=== PATIENT | female | born 1970 | race Caucasian/White ===

== ENCOUNTER 2016-12-25 21:04 | Inpatient (IN) | payer SELFPAY ==
[~2016-12-25] VITALS: Ht 167.6 cm; Wt 68.7 kg
[~2016-12-25 21:04] MED LIST: HYDR-3533 PO; MELO15TA2 PO; METHO500 PO
[2016-12-25] MEDS ORDERED: SODIUM CHLOR 0.9% 1000 ML INJ 1,000 ML IV SCH (21:06)
[2016-12-25] MEDS ORDERED: SODIUM CHLORIDE 0.9% FLUSH 5 ML FLUSH IV FLUSH PRN (21:15)
--- NOTE | 2016-12-25 21:15 | PD ---
HPI Chief Complaint: altered mental status. Time Seen by Provider: 21:06 Travel History International Travel<30 days: No Contact w/Intl Traveler<30days: No History of Present Illness HPI Patient is a 46-year-old female presents to the emergency department for evaluation of altered mental status. According to EMS the patient was recently taken off of her opiate medications her chronic back pain and placed on baclofen. The family reported the patient was having shaking type episodes against the door banging her head against the door. EMS also reported that her left pupil was 6 mm in her right was 3 mm. Initial GCS of 8 on scene. Unclear how much baclofen she's taken today. Patient on arrival is GCS of 8-9: V1- 2M5E2 but does swallow appears to be protecting her airway. All other history is severely limited by the patient's altered mental status. PFSH Past Medical History Bipolar Disorder: Yes Anxiety: Yes Cardiovascular Problems: Yes (MURMUR) COPD: Yes Diminished Hearing: No Immunizations Current: Yes Miscarriage: 1 Past Surgical History Eye Surgery: Yes (1972 - EYE CATARACT) Social History Alcohol Use: Yes (4-6 wine coolers/day) Tobacco Use: Yes (2 packs/day) Substance Use: No Allergies-Medications (Allergen,Severity, Reaction): Coded Allergies: Sulfa (Verified Allergy, Intermediate, rash, 12/25/16) Reported Meds & Prescriptions Reported Meds & Active Scripts Active Active Prescriptions or Reported Medications Unobtainable Review of Systems ROS Limitations: Altered Mental Status Physical Exam Narrative GENERAL: Well-developed well-nourished lethargic. SKIN: Focused skin assessment warm/dry. No bruising no lacerations seen on her person. HEAD: Atraumatic. Normocephalic. No yates signs no raccoons eyes EYES: Pupils equal and round and reactive to light at 3 mm.. No scleral icterus. No injection or drainage. ENT: No nasal bleeding or discharge. Mucous membranes pink and moist. NECK: Trachea midline. No JVD. CARDIOVASCULAR: Regular rate and rhythm. No murmur appreciated. RESPIRATORY: No accessory muscle use. Clear to auscultation. Breath sounds equal bilaterally. GASTROINTESTINAL: Abdomen soft, non-tender, nondistended. Hepatic and splenic margins not palpable. MUSCULOSKELETAL: No obvious deformities. No clubbing. No cyanosis. No edema. NEUROLOGICAL: GCS of 8-9 as above. When painfully stimulated her eyes open wide and she does have some purposeful movements of her arms making her GCS possibly as high as 10. Data Data Last Documented VS Vital Signs Date Time Temp Pulse Resp B/P Pulse Ox O2 Delivery O2 Flow Rate FiO2 12/25/16 23:31 68 23 142/71 99 Room Air 12/25/16 21:29 2 12/25/16 21:24 97.7 Orders Electrocardiogram (12/25/16 21:06) Ammonia (12/25/16 21:06) Complete Blood Count With Diff (12/25/16 21:06) Comprehensive Metabolic Panel (12/25/16 21:06) Creatine Kinase (Cpk) (12/25/16 21:06) Prothrombin Time / Inr (Pt) (12/25/16 21:06) Act Partial Throm Time (Ptt) (12/25/16 21:06) Troponin I (12/25/16 21:06) Thyroid Stimulating Hormone (12/25/16 21:06) Urinalysis - C+S If Indicated (12/25/16 21:06) Chest, Single Ap (12/25/16 21:06) Ct Brain W/O Iv Contrast(Rout) (12/25/16 21:06) Blood Glucose (12/25/16 21:06) Ecg Monitoring (12/25/16 21:06) Iv Access Insert/Monitor (12/25/16 21:06) Oximetry (12/25/16 21:06) Sodium Chloride 0.9% Flush (Ns Flush) (12/25/16 21:15) Sodium Chlor 0.9% 1000 Ml Inj (Ns 1000 M (12/25/16 21:06) Drug Screen, Random Urine (12/25/16 21:06) Alcohol (Ethanol) (12/25/16 21:06) Tylenol (Acetaminophen) (12/25/16 21:06) Salicylates (Aspirin) (12/25/16 21:06) Ct Cerv Spine W/O Contrast (12/25/16 ) Blood Gas Venous (Vbg) (12/25/16 21:56) Restraints Non-Violent JER.Q3H (12/25/16 22:37) Urinary Catheter Management JER.Q8H (12/25/16 22:37) Urine Culture (12/25/16 22:20) Admit Order (Ed Use Only) (12/25/16 ) Labs Laboratory Tests Test 12/25/16 12/25/16 12/25/16 21:14 22:01 22:20 White Blood Count 7.4 TH/MM3 Red Blood Count 4.09 MIL/MM3 Hemoglobin 13.4 GM/DL Hematocrit 38.3 % Mean Corpuscular Volume 93.6 FL Mean Corpuscular Hemoglobin 32.7 PG Mean Corpuscular Hemoglobin 34.9 % Concent Red Cell Distribution Width 14.8 % Platelet Count 126 TH/MM3 Mean Platelet Volume 6.9 FL Neutrophils (%) (Auto) 59.0 % Lymphocytes (%) (Auto) 33.0 % Monocytes (%) (Auto) 5.4 % Eosinophils (%) (Auto) 1.8 % Basophils (%) (Auto) 0.8 % Neutrophils # (Auto) 4.3 TH/MM3 Lymphocytes # (Auto) 2.4 TH/MM3 Monocytes # (Auto) 0.4 TH/MM3 Eosinophils # (Auto) 0.1 TH/MM3 Basophils # (Auto) 0.1 TH/MM3 CBC Comment DIFF FINAL Differential Comment Prothrombin Time 12.8 SEC Prothromb Time International 1.2 RATIO Ratio Activated Partial 26.0 SEC Thromboplast Time Sodium Level 144 MEQ/L Potassium Level 3.2 MEQ/L Chloride Level 113 MEQ/L Carbon Dioxide Level 21.4 MEQ/L Anion Gap 10 MEQ/L Blood Urea Nitrogen 7 MG/DL Creatinine 0.62 MG/DL Estimat Glomerular Filtration 104 ML/MIN Rate Random Glucose 143 MG/DL Calcium Level 8.1 MG/DL Total Bilirubin 1.0 MG/DL Aspartate Amino Transf 28 U/L (AST/SGOT) Alanine Aminotransferase 30 U/L (ALT/SGPT) Alkaline Phosphatase 372 U/L Ammonia 32 MCMOL/L Total Creatine Kinase 29 U/L Troponin I LESS THAN 0.02 NG/ML Total Protein 7.2 GM/DL Albumin 3.6 GM/DL Thyroid Stimulating Hormone 1.640 uIU/ML 3rd Gen Salicylates Level 3.6 MG/DL Acetaminophen Level LESS THAN 2.0 MCG/ML Ethyl Alcohol Level 112 MG/DL Blood Gas Puncture Site RN WITHDRAWAL Blood Gas Patient Temperature 98.6 Venous Blood pH 7.38 Venous Blood Partial Pressure 33 mmHg CO2 Venous Blood Partial Pressure 60 mmHg O2 Venous Blood HCO3 19 mmol/L Venous Blood Oxygen Saturation 83 % Venous Blood Oxygen Content 15.1 Vol % Venous Blood Base Excess -5.1 mmol/L Oxygen Delivery Device ROOM AIR Blood Gas Inspired Oxygen 21 % Urine Color YELLOW Urine Turbidity CLEAR Urine pH 5.5 Urine Specific [place] 1.014 Urine Protein TRACE mg/dL Urine Glucose (UA) NEG mg/dL Urine Ketones NEG mg/dL Urine Occult Blood NEG Urine Nitrite NEG Urine Bilirubin NEG Urine Urobilinogen LESS THAN 2.0 MG/DL Urine Leukocyte Esterase SMALL Urine RBC 1 /hpf Urine WBC 3 /hpf Urine Squamous Epithelial <1 /hpf Cells Urine Bacteria MANY /hpf Urine Hyaline Casts 2 /lpf Urine Mucus FEW /lpf Microscopic Urinalysis Comment CATH-CULTURE IND Urine Opiates Screen NEG Urine Barbiturates Screen NEG Urine Amphetamines Screen NEG Urine Benzodiazepines Screen POS Urine Cocaine Screen NEG Urine Cannabinoids Screen NEG MDM Medical Decision Making Medical Screen Exam Complete: Yes Emergency Medical Condition: Yes Differential Diagnosis Altered mental status, seizure-like activity, Tyrone's paralysis, hemorrhagic brain injury, neck injury, electro-light abnormality, baclofen overdose, opiate washout, alcohol intoxication Narrative Course Patient roomed in emergency department, significant only altered during her stay in the ER. Given EMS history of strong suspicion for a baclofen overdose. The patient's intervals on her EKG were within normal limits. Drug screen was fairly benign, she does have alcohol in her system. CAT scan of her head and neck were negative. Benoit catheter was inserted. She was given normal saline. This point the patient remained significantly altered and given a baclofen possibility and think she would benefit from ICU admission for close monitoring and telemetry monitoring. Patient was discussed with Dr. Patel who agrees to admit the patient. After several hours in the emergency department she was able to tell us her name but she certainly could not tell us where she was how she got here. Critical Care Narrative Aggregate critical care time was 31 minutes. Time to perform other separately billable procedures was not included in the critical care time. My time did not include minutes spent treating any other patients simultaneously or on activities that did not directly contribute to the patient's treatment. The services I provided to this patient were to treat and/or prevent clinically significant deterioration that could result in: , disability, organ failure I provided critical care services requiring my management, as noted below: Chart data review, documentation time, medication orders and management, vital sign assessments/reviewing monitor data, ordering and reviewing lab tests, ordering and interpreting/reviewing x-rays and diagnostic studies, care of the patient and discussion of the patient with the admitting physicians. Diagnosis Primary Impression: Altered mental status Qualified Code: R40.2422 - [place] coma scale total score 9-12, at arrival to emergency department Additional Impression: Seizure-like activity Admitting Information Admitting Physician Requests: Admit Scripts Unable to Obtain Active Prescriptions or Reported Meds Condition: Fausto Donovan MD Dec 25, 2016 21:15
[2016-12-25 21:24] VITALS: BP 131/81; PULSE 52; RESP 16; TEMP 97.7; O2SAT 97
[2016-12-25 21:29] VITALS: O2SAT 100
[2016-12-25 21:30] VITALS: RESP 16; O2SAT 97
--- NOTE | 2016-12-25 21:39 | RADRPT ---
EXAM DATE/TIME: 12/25/2016 21:09 [facility] COMPARISON: No previous studies available for comparison. INDICATIONS : Altered mental status. MEDICAL HISTORY : Chronic obstructive pulmonary disease. SURGICAL HISTORY : None. ENCOUNTER: Initial ACUITY: 1 day PAIN SCORE: Non-responsive. LOCATION: Bilateral chest FINDINGS: A single view of the chest demonstrates the lungs to be symmetrically aerated without evidence of mas s, infiltrate or effusion. The cardiomediastinal contours are unremarkable. Osseous structures are intact. CONCLUSION: No evidence of acute cardiopulmonary disease. Jerrell Anand MD on December 25, 2016 at 21:37 Board Certified Radiologist. This report was verified electronically.
--- NOTE | 2016-12-25 21:40 | RADRPT ---
EXAM DATE/TIME: 12/25/2016 21:30 [facility] COMPARISON: No previous studies available for comparison. INDICATIONS : Altered mental status. Found un-responsive. RADIATION DOSE: 29.70 CTDIvol (mGy) MEDICAL HISTORY : Cardiovascular disease. Chronic obstructive pulmonary disease. SURGICAL HISTORY : None. ENCOUNTER: Initial ACUITY: 1 day PAIN SCALE: Non-responsive LOCATION: cranial TECHNIQUE: Multiple contiguous axial images were obtained of the head. Using automated exposure control and adj ustment of the mA and/or kV according to patient size, radiation dose was kept as low as reasonably a chievable to obtain optimal diagnostic quality images. DICOM format image data is available electro nically for review and comparison. FINDINGS: CEREBRUM: The ventricles are normal for age. No evidence of midline shift, mass lesion, hemorrhage or acute in farction. No extra-axial fluid collections are seen. POSTERIOR FOSSA: The cerebellum and brainstem are intact. The 4th ventricle is midline. The cerebellopontine angle i s unremarkable. EXTRACRANIAL: The visualized portion of the orbits is intact. SKULL: The calvaria is intact. No evidence of skull fracture. CONCLUSION: Negative noncontrast head CT. Jerrell Anand MD on December 25, 2016 at 21:38 Board Certified Radiologist. This report was verified electronically.
[2016-12-25 21:44] LABS: AUTOMATED NEUTROPHIL # 4.3 TH/MM3 (1.8-7.7); BASOPHIL # 0.1 TH/MM3 (0-0.2); BASOPHIL % 0.8 % (0.0-2.0); EOSINOPHIL # 0.1 TH/MM3 (0-0.4); EOSINOPHIL % 1.8 % (0.0-4.0); HEMATOCRIT 38.3 % (35.0-46.0); HEMO FLAGS DIFF FINAL; LYMPHOCYTE # 2.4 TH/MM3 (1.0-4.8); MEAN CELL VOLUME 93.6 FL (80.0-100.0); MEAN CORPUSCULAR HEMOGLOBIN 32.7 PG (27.0-34.0); MEAN CORPUSCULAR HGB CONC 34.9 % (32.0-36.0); MONO % 5.4 % (0.0-8.0); PLATELET COUNT 126 TH/MM3 (150-450); RED BLOOD COUNT 4.09 MIL/MM3 (4.00-5.30); RED CELL DISTRIBUTION WIDTH 14.8 % (11.6-17.2); WHITE BLOOD COUNT 7.4 TH/MM3 (4.0-11.0)
[2016-12-25 21:55] LABS: INTERNATIONAL NORMALIZED RATIO 1.2 RATIO; PROTHROMBIN TIME - PATIENT 12.8 SEC (9.8-11.6)
--- NOTE | 2016-12-25 22:13 | RADRPT ---
EXAM DATE/TIME: 12/25/2016 21:30 [facility] COMPARISON: No previous studies available for comparison. INDICATIONS : Possible fall, found un-responsive. RADIATION DOSE: 15.52 CTDIvol (mGy) MEDICAL HISTORY : Chronic obstructive pulmonary disease. Cardiovascular disease SURGICAL HISTORY : None. ENCOUNTER: Initial ACUITY: 1 day PAIN SCALE: Non-responsive LOCATION: neck TECHNIQUE: Volumetric scanning of the cervical spine was performed. Multiplanar reconstructions in the sagittal, coronal and oblique axial planes were performed. Using automated exposure control and adjustment o f the mA and/or kV according to patient size, radiation dose was kept as low as reasonably achievable to obtain optimal diagnostic quality images. DICOM format image data is available electronically f or review and comparison. FINDINGS: VERTEBRAE: Normal vertebral body height. ALIGNMENT: No evidence of subluxation. C2-C3: The bony spinal canal is normal in size. No evidence of disc bulge or herniation. The neural forami na are bilaterally patent. C3-C4: The bony spinal canal is normal in size. No evidence of disc bulge or herniation. The neural forami na are bilaterally patent. C4-C5: Mild disc space narrowing. There is a left paracentral/foraminal disc protrusion, probably impinging on the exiting left C5 nerve root. C5-C6: Slight disc space narrowing. Small, broad a mostly left paracentral/foraminal disc protrusion. There is mild left foraminal stenosis. C6-C7: The bony spinal canal is normal in size. No evidence of disc bulge or herniation. The neural forami na are bilaterally patent. C7-T1: The bony spinal canal is normal in size. No evidence of disc bulge or herniation. The neural forami na are bilaterally patent. CONCLUSION: 1. No fracture or subluxation of the cervical spine. 2. Age-indeterminate left foraminal disc protrusion at C4/C5, likely impinging on the exiting left C5 nerve root. 3. Mild degenerative disease at C5/C6 with mild left foraminal stenosis. Jerrell Anand MD on December 25, 2016 at 22:09 Board Certified Radiologist. This report was verified electronically.
[2016-12-25 22:15] LABS: BLOOD GAS VENOUS BASE EXCESS -5.1 mmol/L (-2-2); BLOOD GAS VENOUS HCO3 19 mmol/L (22-26); BLOOD GAS VENOUS O2 CONTENT 15.1 Vol % (9.0-17.0); BLOOD GAS VENOUS O2 HGB SAT 83 % (70-76); BLOOD GAS VENOUS PCO2 33 mmHg (44-48); BLOOD GAS VENOUS PO2 60 mmHg (35-40); BLOOD GAS VENOUS pH 7.38 (7.360-7.400); TEMP CORR TO 98.6
[2016-12-25 22:16] LABS: CRITICAL VALUE NO; FIO2 21 %; OXYGEN DEVICE ROOM AIR
[2016-12-25 22:27] LABS: ANION GAP 10 MEQ/L (5-15); AST (GOT) 28 U/L (15-37); BICARBONATE 21.4 MEQ/L (21.0-32.0); BLOOD UREA NITROGEN 7 MG/DL (7-18); CHLORIDE 113 MEQ/L (98-107); GLOMERULAR FILTRATION RATE 104 ML/MIN (>89); POTASSIUM 3.2 MEQ/L (3.5-5.1); SODIUM (NA) 144 MEQ/L (136-145)
[2016-12-25 22:28] LABS: ALT (GPT) 30 U/L (10-53)
[2016-12-25 22:38] LABS: BACTERIA, URINE MANY /hpf; BLOOD, URINE NEG (NEG); GLUCOSE,URINE NEG (NEG); HYALINE CAST, URINE 2 /lpf (RARE); KETONE, URINE NEG (NEG); MUCUS URINE FEW /lpf (OCC); NITRITE,URINE NEG (NEG); PH, URINE 5.5 (5.0-8.5); SQUAMOUS EPITHELIAL CELL URINE <1 /hpf (0-5); URINE COLOR YELLOW (YELLW/STRAW)
[2016-12-25 22:38] LABS: ALKALINE PHOSPHATASE 372 U/L (45-117)
[2016-12-25 22:39] LABS: COMMENT (UR) CATH-CULTURE IND; CULTURE IF INDICATED CATH CULTURE IND
[2016-12-25 22:44] LABS: ACETAMINOPHEN LESS THAN 2.0 MCG/ML (10.0-30.0); CREATINE KINASE 29 U/L (26-192)
[2016-12-25 22:56] LABS: AMPHETAMINE, URINE NEG (NEG); BARBITURATES, URINE NEG (NEG); COCAINE, URINE NEG (NEG)
[2016-12-25 23:31] VITALS: BP 142/71; PULSE 68; RESP 23; O2SAT 99
[2016-12-26] VITALS (15 sets, daily range): BP systolic 117–152; BP diastolic 65–90; PULSE 41–67; RESP 16–20; TEMP 97.5–99.5; O2SAT 98–100
[2016-12-26] MEDS ORDERED: SODIUM PHOSPHATE INJ 30 MMOL in SODIUM CHLOR 0.9% 250 ML INJ 240 ML IV PRN (01:15)
[2016-12-26] MEDS ORDERED: POTASSIUM PHOSPHATE MONOBASIC 500 MG TAB PO PRN (01:15)
[2016-12-26] MEDS ORDERED: DEXTROSE 50% IN WATER 50 ML VIAL(D50) IV PUSH PRN (01:15)
[2016-12-26] MEDS ORDERED: CHLORHEXIDINE GLUCONATE 2 % 1 PACK (2 CLOTHS) TOP PRN (01:15)
[2016-12-26] MEDS ORDERED: MAGNESIUM SULFATE INJ 4 GM in SODIUM CHLORIDE 0.9% INJ 92 ML IV PRN (01:15)
[2016-12-26] MEDS ORDERED: MAGNESIUM OXIDE 400 MG TAB PO PRN (01:15)
[2016-12-26] MEDS ORDERED: MISCELLANEOUS NURSING INFORMATION XX SCH (01:15)
[2016-12-26] MEDS ORDERED: RESP: ALBUTEROL 2.5 MG/IPRATROPIUM 0.5 MG NEB (PRN) INH (01:15)
[2016-12-26] MEDS ORDERED: ONDANSETRON HCL 4 MG/2 ML VIAL IV PRN (01:15)
[2016-12-26] MEDS ORDERED: POTASSIUM CHLOR 20 MEQ PREMIX 100 ML IV PRN ×2 (01:15)
[2016-12-26] MEDS ORDERED: POTASSIUM CHLOR 40 MEQ PREMIX 100 ML IV PRN ×2 (01:15)
[2016-12-26] MEDS ORDERED: MAGNESIUM SULFATE INJ 2 GM in SODIUM CHLORIDE 0.9% INJ 96 ML IV PRN (01:15)
[2016-12-26] MEDS ORDERED: ENOXAPARIN SODIUM 40 MG/0.4 ML SYRINGE SQ SCH (01:15)
[2016-12-26] MEDS ORDERED: POTASSIUM PHOSPHATE INJ 30 MMOL in SODIUM CHLOR 0.9% 250 ML INJ 250 ML IV PRN (01:15)
[2016-12-26] MEDS ORDERED: POTASSIUM PHOSPHATE MONOBASIC 500 MG TAB PO/TUBE PRN (01:15)
--- NOTE | 2016-12-26 01:31 | HHI.HP ---
HPI Service Critical Care Medicine Primary Care Physician Unknown Admission Diagnosis Altered mental status, Probable Baclofen OD. Diagnosis: Chief Complaint: altered mental status Travel History International Travel<30 Days: No Contact w/Intl Traveler <30 Da: No Traveled to Known Affected Are: No History of Present Illness This is a 46yF with history of bipolar disorder who presents to the ED with acute altered mental status. according to EMS, patient was taken off her opiate medications for chronic back pain and placed on baclofen. Her family reported that she was having "shaking type episodes". EMS initially reported she had unequal pupils with an initial GCS 8. In the ED, her pupils were equal and her GCS is improving although she remains severely altered. the remainder of the history is unobtainable secondary to her clinical condition. she is admitted for presumed baclofen overdose. Review of Systems ROS Limitations: Clinical Condition, Intoxication, Altered Mental Status Past Family Social History Allergies: Coded Allergies: Sulfa (Verified Allergy, Intermediate, rash, 12/25/16) Past Medical History Bipolar Disorder Anxiety Disorder COPD Past Surgical History 1972 EYE CATARACT Reported Medications unobtainable secondary to the clinical condition of the patient. Active Ordered Medications See MAR Family History unobtainable secondary to the clinical condition of the patient. Social History unobtainable secondary to the clinical condition of the patient. Physical Exam Vital Signs Vital Signs Date Time Temp Pulse Resp B/P Pulse Ox O2 Delivery O2 Flow Rate FiO2 12/25/16 23:31 68 23 142/71 99 Room Air 12/25/16 21:30 16 97 Room Air 12/25/16 21:29 100 Nasal Cannula 2 12/25/16 21:24 97.7 52 16 131/81 97 Physical Exam GENERAL: Middle-aged female, lying in bed, severely altered, very agitated HEENT: Normocephalic. Atraumatic. Pupils equal, round, reactive, conjugate. Mucous membranes are moist NECK: Trachea is midline. There is no JVD. CHEST: Equal chest rise. Clear to auscultation CARDIOVASCULAR: Normal rate, regular rhythm. Sinus by telemetry ABDOMEN: Soft, nontender, nondistended. No guarding. MUSCULOSKELETAL: Pulses 2+. No peripheral edema. NEUROLOGICAL: RASS +1. does not follow commands. withdraws to deep painful stimuli no focal deficits. Laboratory Laboratory Tests Test 12/25/16 12/25/16 12/25/16 21:14 22:01 22:20 White Blood Count 7.4 Red Blood Count 4.09 Hemoglobin 13.4 Hematocrit 38.3 Mean Corpuscular Volume 93.6 Mean Corpuscular Hemoglobin 32.7 Mean Corpuscular Hemoglobin 34.9 Concent Red Cell Distribution Width 14.8 Platelet Count 126 Mean Platelet Volume 6.9 Neutrophils (%) (Auto) 59.0 Lymphocytes (%) (Auto) 33.0 Monocytes (%) (Auto) 5.4 Eosinophils (%) (Auto) 1.8 Basophils (%) (Auto) 0.8 Neutrophils # (Auto) 4.3 Lymphocytes # (Auto) 2.4 Monocytes # (Auto) 0.4 Eosinophils # (Auto) 0.1 Basophils # (Auto) 0.1 CBC Comment DIFF FINAL Differential Comment Prothrombin Time 12.8 Prothromb Time International 1.2 Ratio Activated Partial 26.0 Thromboplast Time Sodium Level 144 Potassium Level 3.2 Chloride Level 113 Carbon Dioxide Level 21.4 Anion Gap 10 Blood Urea Nitrogen 7 Creatinine 0.62 Estimat Glomerular Filtration 104 Rate Random Glucose 143 Calcium Level 8.1 Total Bilirubin 1.0 Aspartate Amino Transf 28 (AST/SGOT) Alanine Aminotransferase 30 (ALT/SGPT) Alkaline Phosphatase 372 Ammonia 32 Total Creatine Kinase 29 Troponin I LESS THAN 0.02 Total Protein 7.2 Albumin 3.6 Thyroid Stimulating Hormone 1.640 3rd Gen Salicylates Level 3.6 Acetaminophen Level LESS THAN 2.0 Ethyl Alcohol Level 112 Blood Gas Puncture Site RN WITHDRAWAL Blood Gas Patient Temperature 98.6 Venous Blood pH 7.38 Venous Blood Partial Pressure 33 CO2 Venous Blood Partial Pressure 60 O2 Venous Blood HCO3 19 Venous Blood Oxygen Saturation 83 Venous Blood Oxygen Content 15.1 Venous Blood Base Excess -5.1 Oxygen Delivery Device ROOM AIR Blood Gas Inspired Oxygen 21 Urine Color YELLOW Urine Turbidity CLEAR Urine pH 5.5 Urine Specific [place] 1.014 Urine Protein TRACE Urine Glucose (UA) NEG Urine Ketones NEG Urine Occult Blood NEG Urine Nitrite NEG Urine Bilirubin NEG Urine Urobilinogen LESS THAN 2.0 Urine Leukocyte Esterase SMALL Urine RBC 1 Urine WBC 3 Urine Squamous Epithelial <1 Cells Urine Bacteria MANY Urine Hyaline Casts 2 Urine Mucus FEW Microscopic Urinalysis Comment CATH-CULTURE IND Urine Opiates Screen NEG Urine Barbiturates Screen NEG Urine Amphetamines Screen NEG Urine Benzodiazepines Screen POS Urine Cocaine Screen NEG Urine Cannabinoids Screen NEG Date/Time Procedure Status Source Growth 12/25/16 22:20 Urine Culture Received Urine Catheterized Urine Pending Result Diagram: 12/25/16211312/25/162113 Imaging Last Impressions Head CT 12/25/162105 Signed Impressions: Service Date/Time: Sunday, December 25, 2016 21:30 - CONCLUSION: Negative noncontrast head CT. Jerrell Anand MD Chest X-Ray 12/25/162105 Signed Impressions: Service Date/Time: Sunday, December 25, 2016 21:09 - CONCLUSION: No evidence of acute cardiopulmonary disease. Jerrell Anand MD Cervical Spine CT 12/25/16 0000 Signed Impressions: Service Date/Time: Sunday, December 25, 2016 21:30 - CONCLUSION: 1. No fracture or subluxation of the cervical spine. 2. Age-indeterminate left foraminal disc protrusion at C4/C5, likely impinging on the exiting left C5 nerve root. 3. Mild degenerative disease at C5/C6 with mild left foraminal stenosis. Jerrell Anand MD Assessment and Plan Assessment and Plan Assessment: 46yF with presumed baclofen overdose and acute toxic encephalopathy. critically ill at this time with severe encephalopathy. admit to ICU with frequent neuro checks. monitor for dysrhythmias. ivf. Plan: Toxic Encephalopathy Presumed Baclofen overdose -- frequent neuro checks -- may require ativan for her agitation. -- will hold off on intubation at this time as she is protecting her airway -- ivf -- telemetry -- npo with nursing bedside swallow evaluation. advance diet only after mental status improves. Urinary Tract Infection -- rocephin 1gm iv x 3 days. f/u cultures. SCDs Lovenox no indication for gi prophylaxis at this time. This patient remains critically ill with one or more organ systems which are or may become a threat to life. I have spent in excess of 41 minutes discontinuously in the care and management of this patient. This time is exclusive of procedures, and includes, but is not limited to, evaluation of the patient, review of the medical record, discussions with family, consultants, nursing staff, or respiratory therapy, and documentation in the medical record. Eren Nguyen MD Dec 26, 2016 01:31
[2016-12-26] MEDS: SODIUM CHLOR 0.9% 1000 ML INJ 1,000 ML IV SCH ×2 (01:53→12:31)
[2016-12-26] MEDS: cefTRIAXone INJ 1,000 MG in SODIUM CHLORIDE 0.9% INJ 100 ML IV SCH (02:20)
[2016-12-26] MEDS: CHLORHEXIDINE GLUCONATE 2 % 1 PACK (2 CLOTHS) TOP SCH (04:00)
[2016-12-26] MEDS: INSULIN NovoLIN REGULAR SUPPLEMENTAL SCALE SQ SCH ×3 (06:00→17:29)
[2016-12-26 07:18] LABS: STAT NO
--- NOTE | 2016-12-26 07:40 | EKG ---
Date Performed: 12/25/2016 Time Performed: 21:50:46 PTAGE: 46 years EKG: Sinus rhythm RSR prime and leads V1 and V2. Borderline nonspecific ST T-wave changes NO PREVIOUS TRACING DOCTOR: Bonilla Tejeda Interpretating Date/Time 12/26/2016 07:38:56
[2016-12-26] MEDS: DOCUSATE SODIUM 50 MG/SENNA 8.6 MG TAB PO SCH ×2 (09:00→21:00)
[2016-12-26] MEDS: ENOXAPARIN SODIUM 40 MG/0.4 ML SYRINGE SQ SCH (09:46)
--- NOTE | 2016-12-26 14:15 | PD.PSY.CON ---
Provisional Diagnosis Admission Date Dec 25, 2016 at 23:58 Cedar I. Bipolar disorder, depressed episode, alcohol use disorder, Cedar II. Deferred Cedar III. Chronic back pain Cedar IV. alcohol use disorder Cedar V. 50 History of Present Illness Service Psychiatry Consult Requested By Reason for Consult Suicidal attempts. Primary Care Physician Unknown HPI This is a 46-year-old woman, domiciled with her boyfriend Marybeth Casiano, employed in a factory, no kids, on [employer] process, with past psychiatric history of bipolar disorder, 3 previous psychiatric hospitalizations, the last hospitalization was in 1999, no established outpatient care, no psychotropics, multiple suicidal attempts, history of self cutting behavior, alcohol use disorder, medical history of chronic back pain, disorder who presents to the ED with acute altered mental status. according to EMS, patient was taken off her opiate medications for chronic back pain and placed on baclofen. Her family reported that she was having "shaking type episodes". EMS initially reported she had unequal pupils with an initial GCS 8. In the ED, her pupils were equal and her GCS is improving although she remains severely altered. the remainder of the history is unobtainable secondary to her clinical condition. she is admitted for presumed baclofen overdose. Consulted to psychiatry due to suspicion of suicidal attempt. On psychiatric evaluation today the patient is calm, cooperative, she explains that at the moment of the overdose she was drunk. She and says that she drinks heavily, about 5-6 drinks of vodka per day "probably more", and yesterday she was missing her medication for back pain and decided to take baclofen trying to substitute them. Patient clarifies that she did not have a suicidal attempt, but at the same time she has been depressed in the last days and she has not been taking occasions for her previous she diagnosed bipolar disorder. At the moment of this evaluation the patient denies suicidal or homicidal ideation, denies visual and auditory hallucinations , patient is logical, coherent and relevant. Oriented 3, no attention deficit , no fluctuation of consciousness. Collateral information from her boyfriend was obtained, was present during part of the evaluation, he was interviewed individually. He says that patient has been most probably depressed for the last months. He says that the mood has been worse after an accident that has worsened her back pain. He does not think that she overdosed with suicidal intention, but he also clarifies that the patient most probably has been depressed, but he says that his depression is related with alcoholism, undertreated back pain and noncompliant with psychotropics. 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 Review of Systems Constitutional: DENIES: Diaphoretic episodes, Fatigue, Fever, Weight gain, Weight loss, Chills, Dizziness, Change in appetite, Night Sweats Endocrine: DENIES: Abnorml menstrual pattern, Heat/cold intolerance, Polydipsia , Polyuria, Polyphagia Eyes: DENIES: Blurred vision, Diplopia, Eye inflammation, Eye pain, Vision loss , Photosensitivity, Double Vision Ears, nose, mouth, throat: DENIES: Tinnitus, Hearing loss, Vertigo, Nasal discharge, Oral lesions, Throat pain, Hoarseness, Ear Pain, Running Nose, Epistaxis, Sinus Pain, Toothache, Odynophagia Respiratory: DENIES: Apneas, Cough, Snoring, Wheezing, Hemoptysis, Sputum production, Shortness of breath Cardiovascular: DENIES: Chest pain, Palpitations, Syncope, Dyspnea on Exertion , PND, Lower Extremity Edema, Orthopnea, Claudication Gastrointestinal: DENIES: Abdominal pain, Black stools, Bloody stools, Constipation, Diarrhea, Nausea, Vomiting, Difficulty Swallowing, Anorexia Musculoskeletal: DENIES: Joint pain, Muscle aches, Stiffness, Joint Swelling, Back pain, Neck pain Integumentary: DENIES: Abnormal pigmentation, Pruritus, Rash, Nail changes, Breast masses, Breast skin changes, Nipple discharge Hematologic/lymphatic: DENIES: Bruising, Lymphadenopathy Immunologic/allergic: DENIES: Eczema, Urticaria Neurologic: DENIES: Abnormal gait, Headache, Localized weakness, Paresthesias, Seizures, Speech Problems, Tremor, Poor Balance Psychiatric: COMPLAINS OF: Mood changes, Depression Past Family Social History Coded Allergies: Sulfa (Sulfonamide Antibiotics) (Unverified Allergy, Intermediate, rash, ) Unable to Obtain Active Prescriptions or Reported Meds Current Medications Medications (Trade) Dose Ordered Sig/Ilana Route Start Time Stop Time Status Last Admin (NS Flush) 2 ml UNSCH PRN IV FLUSH 12/25/16 21:15 Magnesium Oxide 800 mg 800 mg UNSCH PRN PO 12/26/16 01:15 Magnesium Sulfate 4 gm/Sodium Chloride 100 ml @ 50 mls/hr UNSCH PRN IV 12/26/16 01:15 Magnesium Sulfate 2 gm/Sodium Chloride 100 ml @ 50 mls/hr UNSCH PRN IV 12/26/16 01:15 Potassium Chloride 100 ml @ 50 mls/hr Q2H PRN IV 12/26/16 01:15 Potassium Chloride 100 ml @ 50 mls/hr Q2H PRN IV 12/26/16 01:15 Potassium Chloride 100 ml @ 50 mls/hr Q2H PRN IV 12/26/16 01:15 (KCl 40 Meq Premix Inj) 100 ml @ 25 mls/hr UNSCH PRN IV 12/26/16 01:15 (K-Phos) 2,000 mg Q4H PRN PO 12/26/16 01:15 Potassium Phosphate 2000 mg 2,000 mg UNSCH PRN PO/TUBE 12/26/16 01:15 Potassium Phosphate 30 mmol/ Sodium Chloride 260 ml @ 42 mls/hr UNSCH PRN IV 12/26/16 01:15 (Sodium Phosphate Inj/NS 250 ml Inj) 250 ml @ 42 mls/hr UNSCH PRN IV 12/26/16 01:15 (D50w (Vial) Inj) 25 ml UNSCH PRN IV PUSH 12/26/16 01:15 Insulin Human Regular 1 1 Q6HR SQ 12/26/16 06:00 (NS 1000 ml Inj) 1,000 ml @ 50 mls/hr Q20H IV 12/26/16 01:14 12/26/16 12:31 (Tylenol) 650 mg Q6H PRN PO 12/26/16 01:15 (Zofran Inj) 4 mg Q6H PRN IV 12/26/16 01:15 Miscellaneous Information 1 Q361D XX 12/26/16 01:15 12/26/16 01:15 (Chlorhexidine 2% Cloth) 3 pack Taper DAILY@04 TOP 12/26/16 04:00 12/22/17 03:59 12/26/16 04:00 (Chlorhexidine 2% Cloth) 3 pack UNSCH PRN TOP 12/26/16 01:15 Senna/Docusate Sodium 1 tab 1 tab BID PO 12/26/16 09:00 (Rocephin Inj/NS Inj) 100 ml @ 200 mls/hr Q24H IV 12/26/16 02:00 12/29/16 01:59 12/26/16 02:20 (Lovenox Inj) 40 mg Q24H SQ 12/26/16 09:00 12/26/16 09:46 Family History She denies family psychiatric history Social History Patient was born and raised in [facility], she has been living in [place] since 1992, she lives with her boyfriend in [place], she has no kids, she is employed in a factory, her highest level of education is high school with a medical lab specialist diploma. Patient's Strengths (min. 2) Insight of her alcohol use Physical Exam No EPS, Tremor, withdrawal, no gait disturbance. Vital Signs Vital Signs Date Time Temp Pulse Resp B/P Pulse Ox O2 Delivery O2 Flow Rate FiO2 12/26/16 12:00 62 12/26/16 11:05 97.5 20 142/67 100 12/26/16 02:49 Room Air 12/25/16 21:29 2 Lab Results Laboratory Tests Test 12/25/16 12/25/16 12/25/16 21:14 22:01 22:20 White Blood Count 7.4 Red Blood Count 4.09 Hemoglobin 13.4 Hematocrit 38.3 Mean Corpuscular Volume 93.6 Mean Corpuscular Hemoglobin 32.7 Mean Corpuscular Hemoglobin 34.9 Concent Red Cell Distribution Width 14.8 Platelet Count 126 Mean Platelet Volume 6.9 Neutrophils (%) (Auto) 59.0 Lymphocytes (%) (Auto) 33.0 Monocytes (%) (Auto) 5.4 Eosinophils (%) (Auto) 1.8 Basophils (%) (Auto) 0.8 Neutrophils # (Auto) 4.3 Lymphocytes # (Auto) 2.4 Monocytes # (Auto) 0.4 Eosinophils # (Auto) 0.1 Basophils # (Auto) 0.1 CBC Comment DIFF FINAL Differential Comment Prothrombin Time 12.8 Prothromb Time International 1.2 Ratio Activated Partial 26.0 Thromboplast Time Sodium Level 144 Potassium Level 3.2 Chloride Level 113 Carbon Dioxide Level 21.4 Anion Gap 10 Blood Urea Nitrogen 7 Creatinine 0.62 Estimat Glomerular Filtration 104 Rate Random Glucose 143 Calcium Level 8.1 Total Bilirubin 1.0 Aspartate Amino Transf 28 (AST/SGOT) Alanine Aminotransferase 30 (ALT/SGPT) Alkaline Phosphatase 372 Ammonia 32 Total Creatine Kinase 29 Troponin I LESS THAN 0.02 Total Protein 7.2 Albumin 3.6 Thyroid Stimulating Hormone 1.640 3rd Gen Salicylates Level 3.6 Acetaminophen Level LESS THAN 2.0 Ethyl Alcohol Level 112 Blood Gas Puncture Site RN WITHDRAWAL Blood Gas Patient Temperature 98.6 Venous Blood pH 7.38 Venous Blood Partial Pressure 33 CO2 Venous Blood Partial Pressure 60 O2 Venous Blood HCO3 19 Venous Blood Oxygen Saturation 83 Venous Blood Oxygen Content 15.1 Venous Blood Base Excess -5.1 Oxygen Delivery Device ROOM AIR Blood Gas Inspired Oxygen 21 Urine Color YELLOW Urine Turbidity CLEAR Urine pH 5.5 Urine Specific [place] 1.014 Urine Protein TRACE Urine Glucose (UA) NEG Urine Ketones NEG Urine Occult Blood NEG Urine Nitrite NEG Urine Bilirubin NEG Urine Urobilinogen LESS THAN 2.0 Urine Leukocyte Esterase SMALL Urine RBC 1 Urine WBC 3 Urine Squamous Epithelial <1 Cells Urine Bacteria MANY Urine Hyaline Casts 2 Urine Mucus FEW Microscopic Urinalysis Comment CATH-CULTURE IND Urine Opiates Screen NEG Urine Barbiturates Screen NEG Urine Amphetamines Screen NEG Urine Benzodiazepines Screen POS Urine Cocaine Screen NEG Urine Cannabinoids Screen NEG Date/Time Procedure Status Source Growth 12/25/16 22:20 Urine Culture Received Urine Catheterized Urine Pending Result Diagram: 12/25/16211312/25/162113 Mental Status Examination Appearance woman, disheveled, fair hygiene, calm and cooperative Speech: Unremarkable Orientation: x3 Memory: Unremarkable Thought Process: Logical Thought Content: Unremarkable Language fluent and spontaneous Fund of Knowledge adequate for level of education Hallucination Type: None Attention and Concentration: Good Suicidal Ideation: Yes Previous Suicide Attempts: No Homicidal Ideation: No Previous Homicide Attempts: No Insight: Fair, Poor Judgment: Impulsive Affect: Sad Mood: Sad Motor Activity: Normal gait Assessment & Plan Problem List: (1) Bipolar depression Assessment & Plan: On psychiatric evaluation today patient is calm, cooperative and pleasant. Logical, coherent and relevant. Patient reports ongoing symptomatology of depression for the last months in the context of increased alcohol use, undertreated pain and noncompliance with psychotropics. Patient denies suicidal and homicidal ideation, she denies visual and auditory hallucinations. He denies that recent overdose was with suicidal intentions, but with the intention to treat her pain. Her boyfriend uses a collateral information corroborates with the idea that the patient did not try to commit suicide, but was trying to treat her back pain. Patient expressed understanding of the importance of engaging in psychiatric care for treatment of depression and restart in her psychotropics. She does not meet criteria for involuntary psychiatric admission at this moment, but she was offered to be admitted in psychiatric entirely to restart antidepressants and mood stabilizers once medically clear. We will start Zoloft 25 mg daily for depression. Extensive support, motivation and psychoeducation provided, with follow-up. ICD Code: F31.30 Assessment & Plan Estimated LOS: days Sanjiv Camp MD Dec 26, 2016 14:15
[2016-12-26 15:02] LABS: ALT (GPT) 27 U/L (10-53); ANION GAP 8 MEQ/L (5-15); AST (GOT) 30 U/L (15-37); BICARBONATE 24.6 MEQ/L (21.0-32.0); BLOOD UREA NITROGEN 9 MG/DL (7-18); CHLORIDE 115 MEQ/L (98-107); GLOMERULAR FILTRATION RATE 98 ML/MIN (>89); POTASSIUM 3.6 MEQ/L (3.5-5.1); SODIUM (NA) 148 MEQ/L (136-145)
[2016-12-26 15:06] LABS: ALKALINE PHOSPHATASE 346 U/L (45-117); TOTAL BILIRUBIN ADULT 1.5 MG/DL (0.2-1.0)
[2016-12-26] MEDS ORDERED: PILL SPLITTER OTHER PRN (15:15)
[2016-12-26] MEDS: SERTRALINE HCL 50 MG TAB PO SCH (16:00)
[2016-12-26] MEDS: ACETAMINOPHEN 325 MG TAB PO PRN ×2 (17:19→21:28)
[2016-12-26] MEDS ORDERED: LORazepam 2 MG/ML VIAL IV PUSH PRN ×4 (17:45)
[2016-12-26] MEDS ORDERED: FLUMAZENIL 0.5 MG/5 ML VIAL IV PUSH PRN (17:45)
[2016-12-26] MEDS ORDERED: LORazepam 2 MG TAB PO PRN (17:45)
[2016-12-26] MEDS ORDERED: SODIUM CHLORIDE 0.9% FLUSH 10 ML FLUSH IV FLUSH PRN (17:45)
[2016-12-26] MEDS: SODIUM CHLORIDE 0.9% FLUSH 10 ML FLUSH IV FLUSH SCH (21:00)
[2016-12-26] MEDS: LORazepam 1 MG TAB PO PRN (21:37)
[2016-12-27] VITALS (9 sets, daily range): BP systolic 139–169; BP diastolic 63–77; PULSE 52–63; RESP 16–21; TEMP 97.6–98.3; O2SAT 95–99
[2016-12-27] MEDS: cefTRIAXone INJ 1,000 MG in SODIUM CHLORIDE 0.9% INJ 100 ML IV SCH (01:47)
[2016-12-27] MEDS: CHLORHEXIDINE GLUCONATE 2 % 1 PACK (2 CLOTHS) TOP SCH (03:58)
[2016-12-27] MEDS: ACETAMINOPHEN 325 MG TAB PO PRN ×4 (04:33→20:08)
[2016-12-27] MEDS: INSULIN NovoLIN REGULAR SUPPLEMENTAL SCALE SQ SCH ×4 (06:00→18:00)
[2016-12-27] MEDS: LORazepam 1 MG TAB PO PRN ×4 (06:08→20:06)
[2016-12-27 07:36] LABS: HEMATOCRIT 36.8 % (35.0-46.0); MEAN CORPUSCULAR HGB CONC 34.4 % (32.0-36.0); PLATELET COUNT 110 TH/MM3 (150-450); RED BLOOD COUNT 3.95 MIL/MM3 (4.00-5.30); RED CELL DISTRIBUTION WIDTH 15.1 % (11.6-17.2); REVIEW FLAG FINAL; WHITE BLOOD COUNT 5.1 TH/MM3 (4.0-11.0)
[2016-12-27 08:04] LABS: BICARBONATE 23.1 MEQ/L (21.0-32.0); POTASSIUM 3.8 MEQ/L (3.5-5.1)
[2016-12-27] MEDS: SERTRALINE HCL 50 MG TAB PO SCH (08:54)
[2016-12-27] MEDS: ENOXAPARIN SODIUM 40 MG/0.4 ML SYRINGE SQ SCH (08:55)
[2016-12-27] MEDS: DOCUSATE SODIUM 50 MG/SENNA 8.6 MG TAB PO SCH ×2 (08:55→20:06)
[2016-12-27] MEDS ORDERED: FOLIC ACID 1 MG TAB PO SCH (09:00)
[2016-12-27] MEDS ORDERED: THIAMINE HCL 100 MG TAB PO SCH (09:00)
[2016-12-27] MEDS ORDERED: MULTIVITAMINS/MINERALS THERAPEUTIC TAB PO SCH (09:00)
--- NOTE | 2016-12-27 12:49 | HHI.DS ---
Discharge Summary Admission Date Dec 25, 2016 at 23:58 Discharge Date: Dec 27, 2016 Admitting Diagnosis Altered mental status, Probable Baclofen OD. (1) Altered mental status ICD Code: R41.82 Diagnosis: Principal (2) Overdose ICD Code: T50.901A Diagnosis: Principal (3) Bipolar depression ICD Code: F31.30 Diagnosis: Secondary (4) UTI (urinary tract infection) ICD Code: N39.0 Diagnosis: Principal Procedures See hospital course. Brief History - From Admission This is a 46yF with history of bipolar disorder who presents to the ED with acute altered mental status. according to EMS, patient was taken off her opiate medications for chronic back pain and placed on baclofen. Her family reported that she was having "shaking type episodes". EMS initially reported she had unequal pupils with an initial GCS 8. In the ED, her pupils were equal and her GCS is improving although she remains severely altered. the remainder of the history is unobtainable secondary to her clinical condition. she is admitted for presumed baclofen overdose. CBC/BMP: 12/27/16 0645 12/27/16 0645 Significant Findings Laboratory Tests Test 12/25/16 12/25/16 12/25/16 12/26/16 21:14 22:01 22:20 12:41 Prothrombin Time 12.8 SEC (9.8-11.6) Potassium Level 3.2 MEQ/L (3.5-5.1) Chloride Level 113 MEQ/L 115 MEQ/L (98-107) (98-107) Random Glucose 143 MG/DL (74-106) Calcium Level 8.1 MG/DL (8.5-10.1) Alkaline Phosphatase 372 U/L 346 U/L (45-117) (45-117) Troponin I LESS THAN 0.02 NG/ML (0.02-0.05) Acetaminophen Level LESS THAN 2.0 MCG/ML (10.0-30.0) Ethyl Alcohol Level 112 MG/DL (0-5) Platelet Count 126 TH/MM3 (150-450) Mean Platelet Volume 6.9 FL (7.0-11.0) Venous Blood Partial Pressure 33 mmHg (44-48) CO2 Venous Blood Partial Pressure 60 mmHg (35-40) O2 Venous Blood HCO3 19 mmol/L (22-26) Venous Blood Oxygen Saturation 83 % (70-76) Venous Blood Base Excess -5.1 mmol/L (-2-2) Urine Benzodiazepines Screen POS (NEG) Urine Leukocyte Esterase SMALL (NEG) Urine Bacteria MANY /hpf (NONE) Urine Mucus FEW /lpf (OCC) Sodium Level 148 MEQ/L (136-145) Total Bilirubin 1.5 MG/DL (0.2-1.0) Test 12/27/16 06:45 Red Blood Count 3.95 MIL/MM3 (4.00-5.30) Platelet Count 110 TH/MM3 (150-450) Mean Platelet Volume 6.7 FL (7.0-11.0) Chloride Level 109 MEQ/L (98-107) Calcium Level 8.4 MG/DL (8.5-10.1) Imaging Last Impressions Head CT 12/25/162105 Signed Impressions: Service Date/Time: Sunday, December 25, 2016 21:30 - CONCLUSION: Negative noncontrast head CT. Jerrell Anand MD Chest X-Ray 12/25/162105 Signed Impressions: Service Date/Time: Sunday, December 25, 2016 21:09 - CONCLUSION: No evidence of acute cardiopulmonary disease. Jerrell Anand MD Cervical Spine CT 12/25/16 0000 Signed Impressions: Service Date/Time: Sunday, December 25, 2016 21:30 - CONCLUSION: 1. No fracture or subluxation of the cervical spine. 2. Age-indeterminate left foraminal disc protrusion at C4/C5, likely impinging on the exiting left C5 nerve root. 3. Mild degenerative disease at C5/C6 with mild left foraminal stenosis. Jerrell Anand MD PE at Discharge GENERAL: In no acute distress. SKIN: Warm and dry. HEAD: Normocephalic. EYES: No scleral icterus. No injection or drainage. NECK: Supple, trachea midline. No JVD or lymphadenopathy. CARDIOVASCULAR: Regular rate and rhythm without murmurs, gallops, or rubs. RESPIRATORY: Breath sounds equal bilaterally. No accessory muscle use. GASTROINTESTINAL: Abdomen soft, non-tender, nondistended. MUSCULOSKELETAL: No cyanosis, or edema. No tremors noted. BACK: Nontender without obvious deformity. No CVA tenderness. NEURO: AAO x 3. Motor sensation grossly intact. Pt update on day of discharge Follow-up for encephalopathy Patient is AAO 3. She stated that she want to go into a detox facility for alcoholism. She has no nausea/vomiting or abdominal pain. There are no tremors. There are no signs of withdrawals. When asked patient if she wanted to go to inpatient psych facility since psychiatrist stated that she can go voluntarily she stated yes. She denies any suicidal/homicidal ideations. Patient stated that she is bipolar or so her mood goes up and down. Hospital Course Patient was admitted secondary to toxic encephalopathy to the ICU. Patient was not intubated while she was in the ICU. She did well with supportive care. She 's been on IV fluids. Labs were obtained in which suggested that she did UTI. She is put empirically on Rocephin. Urine cultures grew Klebsiella in which she was pansensitive. She was switched to oral Macrobid. With time her encephalopathy resolved quickly. Most likely encephalopathy was due to a combination of baclofen overdose, alcohol intoxication, and benzos use. During hospitalization patient had no signs of withdrawals. On the day of discharge patient was back to her baseline. She stated that she didn't want detox from alcohol while in inpatient psych. Patient was evaluated by the psychiatrist who stated that patient can voluntarily be admitted to inpatient psychiatry unit for treatment of depression while restarting her medication. Patient agreed to be admitted to inpatient psych. Pt Condition on Discharge: Good Discharge Disposition: Disc to Psych Care Fac Discharge Time: > 30 minutes Discharge Instructions DIET: Follow Instructions for: As Tolerated, No Restrictions Activities you can perform: Regular-No Restrictions Follow up Referrals: PCP Follow-up - 1 Week New Medications: Nitrofurantoin Monohydrate Macrocrystals (Macrobid) 100 Mg Capsule 100 MG PO BID Infection #8 Ref 0 Meagan Moreno MD Dec 27, 2016 12:49
[2016-12-27] MEDS ORDERED: MACR100C2 PO (15:39)
[2016-12-27] MEDS ORDERED: NITROFURANTOIN MONOHYD MACROCR 100 MG CAP PO SCH (18:00)
[2016-12-27] MEDS: SODIUM CHLORIDE 0.9% FLUSH 10 ML FLUSH IV FLUSH SCH (20:07)
== END 2016-12-27 21:23 | DRG 917 ==
LOC: NEPE 21:04 → NEDA 23:58 → HIMW 12-26 03:30 → N04A 12-26 16:51
PROVIDERS: ADMIT Family Medicine; ATTEND Family Medicine
DX: T42.8X1A Poisoning by antiparkinsonism drugs and other central muscle-tone depressants, accidental (unintentional), initial encounter (principal); G92 Toxic encephalopathy; N39.0 Urinary tract infection, site not specified; B96.1 Klebsiella pneumoniae [K. pneumoniae] as the cause of diseases classified elsewhere; F31.9 Bipolar disorder, unspecified; G89.29 Other chronic pain; M54.9 Dorsalgia, unspecified; F17.210 Nicotine dependence, cigarettes, uncomplicated; F10.129 Alcohol abuse with intoxication, unspecified; F19.90 Other psychoactive substance use, unspecified, uncomplicated; Y90.5 Blood alcohol level of 100-119 mg/100 ml
CPT/HCPCS: 51702; 70450; 71010; 72125; 80048; 80053; 80307; 81001; 82140; 82550; 82805; 82948; 83735; 84443; 84484; 85025; 85027; 85610; 85730; 87077; 87086; 87186; 87641; 93005; 94150; 94667; 96360; J0696; J1650; J7030

== ENCOUNTER 2016-12-27 21:30 | Inpatient (IN) | payer SELFPAY ==
[~2016-12-27] VITALS: Ht 167.6 cm; Wt 64.8 kg
[~2016-12-27 21:30] MED LIST changes: -HYDR-3533 PO; +MACR100C2 PO; -MELO15TA2 PO; -METHO500 PO
[2016-12-27] MEDS ORDERED: ALUMINUM/MAGNESIUM/SIMETH 30 ML CUP PO PRN (22:15)
[2016-12-27] MEDS ORDERED: MAGNESIUM HYDROXIDE SUSP 30 ML CUP PO PRN (22:15)
[2016-12-27] MEDS ORDERED: LORazepam 2 MG/ML VIAL IM PRN (22:15)
[2016-12-27 22:20] VITALS: BP 155/82; PULSE 64; RESP 18; TEMP 98.1; O2SAT 97
[2016-12-27] MEDS ORDERED: LORazepam 2 MG TAB PO PRN (23:30)
[2016-12-27] MEDS ORDERED: LORazepam 2 MG/ML VIAL IV PUSH PRN ×4 (23:30)
[2016-12-27] MEDS ORDERED: LORazepam 1 MG TAB PO PRN (23:30)
[2016-12-27] MEDS ORDERED: FLUMAZENIL 0.5 MG/5 ML VIAL IV PUSH PRN (23:30)
[2016-12-28] MEDS: LORazepam 1 MG TAB PO PRN ×2 (02:01→11:19)
[2016-12-28 05:32] VITALS: BP 135/77; PULSE 64; RESP 17; TEMP 98.2; O2SAT 97
[2016-12-28] MEDS: ACETAMINOPHEN 325 MG TAB PO PRN ×3 (09:00→20:27)
[2016-12-28] MEDS: NICOTINE 21 MG/24 HR PATCH T-DERMAL SCH (09:00)
[2016-12-28 13:00] LABS: ANION GAP 9 MEQ/L (5-15); BICARBONATE 22.2 MEQ/L (21.0-32.0); BLOOD UREA NITROGEN 13 MG/DL (7-18); CHLORIDE 107 MEQ/L (98-107); GLOMERULAR FILTRATION RATE 100 ML/MIN (>89); HDL CHOLESTEROL 58.2 MG/DL (40.0-60.0); LDL CHOLESTEROL 97 MG/DL (0-99); POTASSIUM 3.6 MEQ/L (3.5-5.1); SODIUM (NA) 138 MEQ/L (136-145)
--- NOTE | 2016-12-28 13:00 | HHI.HP ---
Provisional Diagnosis Admission Date Dec 27, 2016 at 21:30 [place] I. Bipolar disorder, alcohol use disorder [place] II. Deferred Certification of Person's Competence To Provide Express and Informed Consent I have personally examined Francesca Mcdermott , a person being served at [facility] on, Dec 28, 2016 12:51. Express and informed consent means consent voluntarily given in writing, by a competent person, after sufficient explanation and disclosure of the subject matter involved to enable the person to make a knowing and willful decision without any element of force, fraud, deceit, duress, or other form of constraint or coercion. This person is 18 years of age or older, is not now known to be incompetent to consent to treatment with a guardian advocate, and does not have a health care surrogate or proxy currently making medical treatment decisions. I have found this person to be one of the following: [X] Competent to provide express and informed consent, as defined above, for voluntary admission to this facility and is competent to provide express and informed consent for treatment. He/she has the consistent capacity to make well reasoned, willful, and knowing decisions concerning his or her medical or mental health treatment. The person fully and consistently understands the purpose of the admission for examination/placement and is fully capable of personally exercising all rights assured [place] Incompetent to provide express and informed consent to voluntary admission, and this is incompetent to provide express and informed consent to treatment. The person must be transferred to involuntary status and a petition for a guardian advocate filed with the Circuit Court. [] Refusing to provide express and informed consent to voluntary admission but is competent to provide express and informed consent for treatment. The person must be discharged or transferred to involuntary status. Form shall be completed within 24 hours of a person's arrival at the receiving facility and filed in the clinical record of each person: 1. Admitted on a voluntary basis 2. Permitted to provide express and informed consent to his/her own treatment 3. Allowed to transfer from involuntary to voluntary status 4. Prior to permitting a person to consent to his or her own treatment after having been previously found incompetent to consent to treatment. History of Present Illness Capacity: Has Capacity HPI ICU 12/26/2016: The patient is a 46-year-old woman, domiciled with her boyfriend Marybeth Casiano, employed in a factory, no kids, on SSI process, with past psychiatric history of bipolar disorder, 3 previous psychiatric hospitalizations , the last hospitalization was in 1999, no established outpatient care, no psychotropics, multiple suicidal attempts, history of self cutting behavior, alcohol use disorder, medical history of chronic back pain, disorder who presents to the ED with acute altered mental status. according to EMS, patient was taken off her opiate medications for chronic back pain and placed on baclofen. Her family reported that she was having "shaking type episodes". EMS initially reported she had unequal pupils with an initial GCS 8. In the ED, her pupils were equal and her GCS is improving although she remains severely altered. the remainder of the history is unobtainable secondary to her clinical condition. she is admitted for presumed baclofen overdose. Consulted to psychiatry due to suspicion of suicidal attempt. On psychiatric evaluation today the patient is calm, cooperative, she explains that at the moment of the overdose she was drunk. She and says that she drinks heavily, about 5-6 drinks of vodka per day "probably more", and yesterday she was missing her medication for back pain and decided to take baclofen trying to substitute them. Patient clarifies that she did not have a suicidal attempt, but at the same time she has been depressed in the last days and she has not been taking occasions for her previous she diagnosed bipolar disorder. At the moment of this evaluation the patient denies suicidal or homicidal ideation, denies visual and auditory hallucinations, patient is logical, coherent and relevant. Oriented 3, no attention deficit, no fluctuation of consciousness. Collateral information from her boyfriend was obtained, was present during part of the evaluation, he was interviewed individually. He says that patient has been most probably depressed for the last months. He says that the mood has been worse after an accident that has worsened her back pain. He does not think that she overdosed with suicidal intention, but he also clarifies that the patient most probably has been depressed, but he says that his depression is related with alcoholism, undertreated back pain and noncompliant with psychotropics. 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 On psychiatric evaluation today patient is complaining of anxiety, sweating, distress and tremors, patient says the most probably she is withdrawing from alcohol. She says that due to discomfort her depression is increased, as long as her anxiety levels. Patient reports amotivation, hopelessness, helplessness , poor appetite, insomnia, but denies suicidal and homicidal ideation. Patient is oriented 3, logical, coherent and relevant. Patient seems to be objectively depressed, on stress, denies visual and auditory hallucinations. No paranoia, delusions, ideas of reference present. Review of Systems Constitutional: COMPLAINS OF: Night Sweats, DENIES: Diaphoretic episodes, Fatigue, Fever, Weight gain, Weight loss, Chills, Dizziness, Change in appetite Eyes: DENIES: Blurred vision, Diplopia, Eye inflammation, Eye pain, Vision loss , Photosensitivity, Double Vision Ears, nose, mouth, throat: DENIES: Tinnitus, Hearing loss, Vertigo, Nasal discharge, Oral lesions, Throat pain, Hoarseness, Ear Pain, Running Nose, Epistaxis, Sinus Pain, Toothache, Odynophagia Respiratory: DENIES: Apneas, Cough, Snoring, Wheezing, Hemoptysis, Sputum production, Shortness of breath Cardiovascular: DENIES: Chest pain, Palpitations, Syncope, Dyspnea on Exertion , PND, Lower Extremity Edema, Orthopnea, Claudication Gastrointestinal: DENIES: Abdominal pain, Black stools, Bloody stools, Constipation, Diarrhea, Nausea, Vomiting, Difficulty Swallowing, Anorexia Genitourinary: DENIES: Abnormal vaginal bleeding, Dysmenorrhea, Dyspareunia, Sexual dysfunction, Urinary frequency, Urinary incontinence, Urgency, Hematuria , Dysuria, Nocturia, Vaginal discharge Musculoskeletal: DENIES: Joint pain, Muscle aches, Stiffness, Joint Swelling, Back pain, Neck pain Immunologic/allergic: DENIES: Eczema, Urticaria Neurologic: DENIES: Abnormal gait, Headache, Localized weakness, Paresthesias, Seizures, Speech Problems, Tremor, Poor Balance Psychiatric: COMPLAINS OF: Anxiety, Agitation, DENIES: Confusion, Mood changes , Depression, Hallucinations, Suicidal Ideation, Homicidal Ideation, Delusions Past Psych History Violence risk - self (6 mos) Increased due to recent suicidal attempt Substance Abuse History Drugs/Alcohol past 12 months She reports the use of alcohol Past Family Social History Coded Allergies: Sulfa (Sulfonamide Antibiotics) (Unverified Allergy, Intermediate, rash, ) Active Scripts Nitrofurantoin Monohydrate Macrocrystals (Macrobid)100 Mg [id number] Mg PO BID #8 CAP Ref 0 Prov:Meagan Ortiz MD 12/27/16 Current Medications Medications (Trade) Dose Ordered Sig/Ilana Route Start Time Stop Time Status Last Admin (Ativan) 1 mg Q6H PRN PO 12/27/16 22:15 12/28/16 11:19 (Ativan Inj) 1 mg Q6H PRN IM 12/27/16 22:15 (Tylenol) 650 mg Q4H PRN PO 12/27/16 22:15 12/28/16 09:00 (Milk Of Magnesia Liq) 30 ml DAILY PRN PO 12/27/16 22:15 (Mag-Al Plus Susp Liq) 30 ml Q6H PRN PO 12/27/16 22:15 (Habitrol 21 Mg Patch.24 Hr) 1 patch DAILY T-DERMAL 12/28/16 09:00 12/28/16 09:00 Miscellaneous Information 1 HS T-DERMAL 12/28/16 21:00 (Ativan) 1 mg Q4H PRN PO 12/27/16 23:30 (Ativan Inj) 1 mg Q4H PRN IV PUSH 12/27/16 23:30 (Ativan) 2 mg Q2H PRN PO 12/27/16 23:30 (Ativan Inj) 2 mg Q2H PRN IV PUSH 12/27/16 23:30 (Ativan Inj) 2 mg Q1H PRN IV PUSH 12/27/16 23:30 (Ativan Inj) 2 mg Q15M PRN IV PUSH 12/27/16 23:30 (Romazicon Inj) 0.2 mg Q1M PRN IV PUSH 12/27/16 23:30 (Remeron) 15 mg HS PO 12/28/16 21:00 UNV Family History She denies family psychiatric history Social History Patient was born and raised in [facility], she has been living in [place] since 1992, she lives with her boyfriend in [place], she has no kids, she is employed in a factory, her highest level of education is high school with a 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 2) Good insight, support from fianc Physical Exam No tremors, no sweating, no EPS, no stiffness, no psychomotor agitation or retardation Vital Signs Vital Signs Date Time Temp Pulse Resp B/P Pulse Ox O2 Delivery O2 Flow Rate FiO2 12/28/16 05:32 98.2 64 17 135/77 97 Lab Results 12/27/16 0645 Significant Findings Laboratory Tests Test 12/25/16 12/25/16 12/25/16 12/26/16 21:14 22:01 22:20 12:41 Prothrombin Time 12.8 SEC (9.8-11.6) Potassium Level 3.2 MEQ/L (3.5-5.1) Chloride Level 113 MEQ/L 115 MEQ/L (98-107) (98-107) Random Glucose 143 MG/DL (74-106) Calcium Level 8.1 MG/DL (8.5-10.1) Alkaline Phosphatase 372 U/L 346 U/L (45-117) (45-117) Troponin I LESS THAN 0.02 NG/ML (0.02-0.05) Acetaminophen Level LESS THAN 2.0 MCG/ML (10.0-30.0) Ethyl Alcohol Level 112 MG/DL (0-5) Platelet Count 126 TH/MM3 (150-450) Mean Platelet Volume 6.9 FL (7.0-11.0) Venous Blood Partial Pressure 33 mmHg (44-48) CO2 Venous Blood Partial Pressure 60 mmHg (35-40) O2 Venous Blood HCO3 19 mmol/L (22-26) Venous Blood Oxygen Saturation 83 % (70-76) Venous Blood Base Excess -5.1 mmol/L (-2-2) Urine Benzodiazepines Screen POS (NEG) Urine Leukocyte Esterase SMALL (NEG) Urine Bacteria MANY /hpf (NONE) Urine Mucus FEW /lpf (OCC) Sodium Level 148 MEQ/L (136-145) Total Bilirubin 1.5 MG/DL (0.2-1.0) Test 12/27/16 06:45 Red Blood Count 3.95 MIL/MM3 (4.00-5.30) Platelet Count 110 TH/MM3 (150-450) Mean Platelet Volume 6.7 FL (7.0-11.0) Chloride Level 109 MEQ/L (98-107) Calcium Level 8.4 MG/DL (8.5-10.1) Mental Status Examination Appearance woman, good hygiene, [facility], she is calm and cooperative, but a little bit irritable Speech: Unremarkable Memory: Unremarkable Thought Process: Logical, Goal Directed, Linear Thought Content: Unremarkable Language Fluent and spontaneous Fund of Knowledge Adequate for level of education Hallucination Type: None Attention and Concentration: Good Suicidal Ideation: No Previous Suicide Attempts: No Homicidal Ideation: No Previous Homicide Attempts: No Judgment: Impulsive Affect: Euthymic Mood: Angry Motor Activity: Normal gait Assessment & Plan Problem List: (1) Bipolar depression Assessment & Plan: On psychiatric evaluation today patient is calm, cooperative and pleasant. Logical, coherent and relevant. Patient reports ongoing symptomatology of depression for the last months in the context of increased alcohol use, undertreated pain and noncompliance with psychotropics. Patient denies suicidal and homicidal ideation, she denies visual and auditory hallucinations. He denies that recent overdose was with suicidal intentions, but with the intention to treat her pain. Her boyfriend uses a collateral information corroborates with the idea that the patient did not try to commit suicide, but was trying to treat her back pain. Patient expressed understanding of the importance of engaging in psychiatric care for treatment of depression and restart in her psychotropics. She does not meet criteria for involuntary psychiatric admission at this moment, but she was offered to be admitted in psychiatric entirely to restart antidepressants and mood stabilizers once medically clear. We will start Remeron 15 mg daily for depression and to help to sleep. Extensive support, motivation and psychoeducation provided. dynamic balancer set up worker intervention for additional collateral information, psychosocial assessment, individual and group psychotherapy, to coordinate a safe discharge. ICD Code: F31.30 Assessment & Plan Estimated LOS: Sanjiv Chaidez MD Dec 28, 2016 13:00
[2016-12-28 16:59] LABS: HEMOGLOBIN A1a 0.9 %; HEMOGLOBIN A1b 0.6 %; HEMOGLOBIN Ao 88.1 %; HEMOGLOBIN F 0.7 %; HEMOGLOBIN LA1C 1.7 %
[2016-12-28 18:19] VITALS: BP 129/65; PULSE 68; RESP 18; TEMP 98.3; O2SAT 95
[2016-12-28] MEDS ORDERED: REMOVE OLD NICOTINE PATCH T-DERMAL SCH (21:00)
[2016-12-28] MEDS ORDERED: MIRTAZAPINE 15 MG TAB PO SCH (21:00)
[2016-12-29] MEDS: LORazepam 1 MG TAB PO PRN (02:43)
[2016-12-29 05:32] VITALS: BP 96/54; PULSE 54; RESP 16; TEMP 97.6
[2016-12-29] MEDS: NICOTINE 21 MG/24 HR PATCH T-DERMAL SCH (08:28)
[2016-12-29] MEDS: ACETAMINOPHEN 325 MG TAB PO PRN ×2 (09:13→13:08)
[2016-12-29] MEDS ORDERED: MIRTA15 PO (13:06)
--- NOTE | 2016-12-29 13:38 | HHI.DS ---
Psychiatry Discharge Summary Inpatient Psychiatric care?: Yes Advance Directive: No Reason Not Provided: Not Receptive Mental Health AdvanceDirective: No Health Care Proxy: No Admission Admission Date Dec 27, 2016 at 21:30 Admission Diagnosis: (1) Bipolar depression ICD Code: F31.30 Brief History ICU 12/26/2016: The patient is a 46-year-old woman, domiciled with her boyfriend Marybeth Casiano, employed in a factory, no kids, on SSI process, with past psychiatric history of bipolar disorder, 3 previous psychiatric hospitalizations , the last hospitalization was in 1999, no established outpatient care, no psychotropics, multiple suicidal attempts, history of self cutting behavior, alcohol use disorder, medical history of chronic back pain, disorder who presents to the ED with acute altered mental status. according to EMS, patient was taken off her opiate medications for chronic back pain and placed on baclofen. Her family reported that she was having "shaking type episodes". EMS initially reported she had unequal pupils with an initial GCS 8. In the ED, her pupils were equal and her GCS is improving although she remains severely altered. the remainder of the history is unobtainable secondary to her clinical condition. she is admitted for presumed baclofen overdose. Consulted to psychiatry due to suspicion of suicidal attempt. On psychiatric evaluation today the patient is calm, cooperative, she explains that at the moment of the overdose she was drunk. She and says that she drinks heavily, about 5-6 drinks of vodka per day "probably more", and yesterday she was missing her medication for back pain and decided to take baclofen trying to substitute them. Patient clarifies that she did not have a suicidal attempt, but at the same time she has been depressed in the last days and she has not been taking occasions for her previous she diagnosed bipolar disorder. At the moment of this evaluation the patient denies suicidal or homicidal ideation, denies visual and auditory hallucinations, patient is logical, coherent and relevant. Oriented 3, no attention deficit, no fluctuation of consciousness. Collateral information from her boyfriend was obtained, was present during part of the evaluation, he was interviewed individually. He says that patient has been most probably depressed for the last months. He says that the mood has been worse after an accident that has worsened her back pain. He does not think that she overdosed with suicidal intention, but he also clarifies that the patient most probably has been depressed, but he says that his depression is related with alcoholism, undertreated back pain and noncompliant with psychotropics. 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 On psychiatric evaluation today patient is complaining of anxiety, sweating, distress and tremors, patient says the most probably she is withdrawing from alcohol. She says that due to discomfort her depression is increased, as long as her anxiety levels. Patient reports amotivation, hopelessness, helplessness , poor appetite, insomnia, but denies suicidal and homicidal ideation. Patient is oriented 3, logical, coherent and relevant. Patient seems to be objectively depressed, on stress, denies visual and auditory hallucinations. No paranoia, delusions, ideas of reference present. Tobacco Use In Past 30 Days: 5 or More Cigarettes/Day Alcohol Use: 4 or More Times Per Week Hospital Course She was admitted yesterday for psychiatric stabilization and safety. Patient has reported good mood, denying anhedonia, hopelessness, helplessness, anxiety, suicidal and homicidal ideation. Patient has recently overdose with baclofen without suicidal intentions. Patient has an extensive history of alcohol and substance abuse. During her stay psychiatrist on longitudinal evaluation no psychotic behavior or thought processes, prominent mood symptoms or suicidal behavior were not elicited. During hospitalization patient was calm, cooperative, but persistently demanding benzodiazepines for anxiety and "withdrawal symptoms". At the moment of the discharge patient is a baseline, denies suicidal and homicidal ideation, patient seems to be motivated to follow- up in outpatient with addiction services. Results Blood Pressure 96 / 54 Vital Signs Date Time Temp Pulse Resp B/P Pulse Ox O2 Delivery O2 Flow Rate FiO2 12/29/16 05:32 97.6 54 16 96/54 12/28/16 18:19 95 Laboratory Results Test 12/28/16 11:33 Hemoglobin A1c 4.5 % (4.3-6.0) Triglycerides Level 116 MG/DL (42-150) Cholesterol Level 178 MG/DL (120-200) LDL Cholesterol 97 MG/DL (0-99) HDL Cholesterol 58.2 MG/DL (40.0-60.0) Summary of Procedures No procedures done Pending results at discharge: No Medications # of Antipsychotic meds at D/C: 0 Approp Antipsych med options 1 - Minimum of three failed multiple trials of monotherapy. 2 - Documented plan to taper to monotherapy due to previous use of multiple meds OR cross-taper in progress at D/C. 3 - Documentation of augmentation of Clozapine. 4 - Justification other than those listed in allowable values 1-3, document here : Discharge Discharge Date: Dec 29, 2016 Discharge Diagnosis: (1) Bipolar depression ICD Code: F31.30 Mental Status Exam at Disch woman, age appearing, [facility], good hygiene, she is calm and cooperative. Her mood is euthymic, her affect is appropriate. Her speech is normal tone and volume. Her thought process is linear, coherent and relevant. Thought content is devoid of suicidal and homicidal ideation, visual and auditory hallucinations. Her insight, impulse control and judgment are fair. Cognition is intact. Pt Condition on Discharge: Stable Discharge Disposition: Discharge Home Discharge Instructions Diet Instructions: As Tolerated, No Restrictions Activities you can perform: Weight Bearing as Cristian Scheduled Appointment: Choco Rutledge Discharge Time > 30 minutes Discharge/Advance Care Plan Health Problems: (1) Bipolar depression Goals to promote your health * To prevent worsening of your condition and complications * To maintain your health at the optimal level Directions to meet your goals Take your medications as prescribed Follow your dietary instruction Follow activity as directed Keep your appointments as scheduled Take your immunizations and boosters as scheduled If your symptoms worsen call your PCP, if no PCP go to Urgent Care Center or Emergency Room For 04/12 questions related to your inpatient stay or results of tests pending at discharge, please contact Dr. Sanjiv Camp at Smoking is Dangerous to Your Health. Avoid second hand smoking Sanjiv Camp MD Dec 29, 2016 13:38
== END 2016-12-29 14:30 | disposition home or self-care (01) | DRG 885 ==
LOC: H260 21:30
PROVIDERS: ADMIT Psychiatry & Neurology Psychiatry; ATTEND Psychiatry & Neurology Psychiatry
DX: F31.30 Bipolar disorder, current episode depressed, mild or moderate severity, unspecified (principal); F17.210 Nicotine dependence, cigarettes, uncomplicated; G89.29 Other chronic pain; M54.9 Dorsalgia, unspecified; Z91.5 Personal history of self-harm; Z91.14 Patient's other noncompliance with medication regimen
CPT/HCPCS: 80048; 80061; 83036